=== PATIENT | male | born 1960 | race Caucasian/White ===

== ENCOUNTER → 2017-06-12 | Outpatient (CLI) | payer BC ==
[~2017-06-12] MED LIST: BUDE180I INH; MXZC25 PO; PLMIN90 IN; PRED50TA PO; PRVC/20 PO; SIMV40TA2 PO
== END | disposition home or self-care (01) ==
LOC: C.LABSPEC 12:04
PROVIDERS: ATTEND Family Medicine
DX: J02.9 Acute pharyngitis, unspecified (principal)

== ENCOUNTER 2017-06-26 09:33 | Emergency (ER) | payer BC ==
[~2017-06-26] VITALS: Ht 180.3 cm; Wt 132.0 kg
[~2017-06-26 09:33] MED LIST changes: -BUDE180I INH; -MXZC25 PO; -PRED50TA PO; -PRVC/20 PO
[2017-06-26 09:40] VITALS: Ht 180.3 cm; Wt 132.0 kg
[2017-06-26] MEDS ORDERED: DEXAMETHASONE SOD INJ 4 MG/ML VIAL IV STA (09:56)
[2017-06-26] MEDS ORDERED: RANITIDINE HCL 50 MG/100 ML D5W IV STA (09:56)
[2017-06-26] MEDS ORDERED: DiphenhydrAMINE HCL 50 MG/ML VIAL IV STA (09:56)
[2017-06-26 10:20] VITALS: O2SAT 96
[2017-06-26 10:24] LABS: BASO % 0.1 %; BASO ABS # 0.02 K/uL (0-0.2); COMPLETE YES; EOS % 0.6 %; HEMATOCRIT 42.2 % (42-52); IG% 0.2 %; LYMPH % 11.8 %; LYMPH ABS # 1.91 K/uL (1.2-3.4); MEAN CELL VOLUME 87.4 fL (80-100); MEAN CORPUSCULAR HEMOGLOBIN 30.8 pg (25-34); MEAN CORPUSCULAR HGB CONC 35.3 g/dl (32-36); MEAN PLATELET VOLUME 10.7 fL (7.4-10.4); MONO % 6.1 %; NEUT % 81.2 %; PLATELET COUNT 227 K/uL (130-400); RED BLOOD COUNT 4.83 M/uL (4.7-6.1); WHITE BLOOD COUNT 16.14 K/uL (4.8-10.8)
[2017-06-26] MEDS ORDERED: BUDE180I INH (10:38)
[2017-06-26] MEDS ORDERED: PRVC/20 PO (10:38)
[2017-06-26] MEDS ORDERED: MXZC25 PO (10:38)
[2017-06-26 10:42] LABS: ALT/SGPT 26 U/L (12-78); AST/SGOT 12 U/L (15-37); BLOOD UREA NITROGEN 20 mg/dl (7-18); BUN/CREATININE RATIO 19.7 (10-20); CALCIUM 8.8 mg/dl (8.5-10.1); CARBON DIOXIDE 25 mmol/L (21-32); CHLORIDE 103 mmol/L (98-107); GLUCOSE 108 mg/dl (70-99); POTASSIUM 3.6 mmol/L (3.5-5.1); SODIUM 137 mmol/L (136-145); URIC ACID 6.5 mg/dl (2.6-7.2)
[2017-06-26 10:44] LABS: ANTI-STREP O SCR: 5YRS OR > NEG IU/ml (<200 IU)
[2017-06-26 10:52] LABS: ALKALINE PHOSPHATASE 69 U/L (45-117); C-REACTIVE PROTEIN 4.62 mg/dl (0-0.29)
[2017-06-26 11:19] LABS: LYME DISEASE AB IGG NEG (NEG)
[2017-06-26 11:20] LABS: LYME DISEASE AB IGM NEG (NEG)
[2017-06-26] MEDS ORDERED: PRED50TA PO (13:10)
[2017-06-26 13:22] VITALS: BP 149/97; TEMP 36.6
[2017-06-26 13:23] VITALS: PULSE 75; O2SAT 96
--- NOTE | 2017-06-26 18:28 | EMERGENCY ROOM VISIT NOTE ---
History Report prepared by Wilmer: Hao Calhoun Under the Supervision of: Dr. Tucker Chandler M.D. First contact with patient: 09:43 Chief Complaint: ALLERGIC REACTION Stated Complaint: REACTION TO AMOXICILLIN-RASH/SWELLING FEET/HANDS History of Present Illness The patient is a 57 year old male who presents to the Emergency Room with complaints of a worsening allergic reaction that started a few days ago. He says that 2 weeks ago he had a bad sore throat, so he saw his primary care physician in [place] and had a throat culture done, which was negative, but he was diagnosed with 2 ear infections, and was put on Amoxicillin for 10 days, 500 mg, 3 times per day. The patient says that he was fine for the first 2 days on the medication, but the next 3 days he had diarrhea, which since has resolved. He notes that he then noticed that his feet and hands were swelling up , and he was having blisters on his palm. The patient says that his hands are still swollen. Per the patient's , the patient could hardly walk yesterday. The patient adds that he was having hives everywhere except his back. He says that he was at work last night, and he noticed that his left shoulder was getting increasingly tighter, and he started having hives on the back of his head. He says that the left shoulder tightness and pain has spread to his neck as well. The patient says that he now cannot raise his right arm due to stiffness, soreness, tightness, and weakness. He states that he has pain in both his hands now in addition to his right hip, which started last night. The patient says that both his hands are currently itchy. He notes that he was wheezing a bit for a couple days earlier in the week. Per the patient's , the patient is not eating much. The patient did stop taking the Amoxicillin 3 days ago. He notes no chronic medical conditions. He also notes no recent tick bites. Pt denies LOC, headache, fevers, chills, diaphoresis, visual changes, chest pain, current breathing difficulties, nausea, vomiting, abdominal pain, back pain, melena, hematochezia, urinary symptoms, numbness, lymphadenopathy, or other complaints. Source of History: patient, spouse/significant other Onset: A few days ago Position: other (global - allergic reaction) Quality: other (to Amoxicillin) Timing: worsening Associated Symptoms: + neck pain, + diarrhea (which has since resolved), + weakness (in joints), + rash (hives everywhere) Note: Associated symptoms: Feet and hand swelling, itching. Hives all over. Pain in left shoulder. Cannot raise right arm. Not eating well. Wheezing which has resolved. Review of Systems See HPI for pertinent positives and negatives. A total of ten systems were reviewed and were otherwise negative. Past Medical & Surgical Medical Problems: (1) Ankle fracture, right (2) Fracture of radius, distal, right, closed (3) Hemorrhoid (4) Sleep apnea Family History Cancer Heart disease Social History Smoking Status: Never Smoker Alcohol Use: none Drug Use: none Marital Status: Housing Status: lives with significant other Occupation Status: employed Current/Historical Medications Scheduled Budesonide (Inhalation) (Pulmicort Flexhaler), 2 PUFFS INH BID Pravastatin Sod (Pravastatin Sodium), 1 TAB PO HS Prednisone (Prednisone), 50 MG PO DAILY Triamterene/Hctz (Triamterene/Hctz 37.5-25MG Tab), 1 TAB PO DAILY Allergies Coded Allergies: Amoxicillin (Unverified Allergy, Severe, SWELLING,HIVES, 06/26/17) Physical Exam Vital Signs Date Time Temp Pulse Resp B/P (MAP) Pulse Ox O2 Delivery O2 Flow Rate FiO2 06/26/17 13:23 75 18 96 Room Air 06/26/17 13:22 36.6 76 24 149/97 96 06/26/17 10:33 76 24 06/26/17 10:27 80 06/26/17 10:20 96 Room Air 06/26/17 10:18 95 Room Air 06/26/17 09:50 98 Room Air 06/26/17 09:40 36.6 90 20 149/97 96 Room Air Physical Exam GENERAL: Awake, alert, well-appearing, in no distress HENT: Normocephalic, atraumatic. Oropharynx unremarkable. EYES: Normal conjunctiva. Sclera non-icteric. NECK: Supple. No nuchal rigidity. FROM. No JVD. RESPIRATORY: Clear to auscultation. CARDIAC: Regular rate, normal rhythm. Extremities warm and well perfused. Pulses equal. ABDOMEN: Soft, non-distended. No tenderness to palpation. No rebound or guarding. No masses. RECTAL: Deferred. MUSCULOSKELETAL: Edema to hands. Range of motion in left shoulder is limited secondary to pain. Relief to discomfort with abduction to 180 degrees. Resistance to external rotation elicits shoulder pain. No palpable tenderness. Chest examination reveals no tenderness. The back is symmetrical on inspection without obvious abnormality. There is no CVA tenderness to palpation. LOWER EXTREMITIES: Calves are equal size bilaterally and non-tender. No edema. No discoloration. NEURO: Normal sensorium. No sensory or motor deficits noted. SKIN: Redness in back of head. Medical Decision & Procedures Laboratory Results 06/26/17 10:10 Red Blood Count 4.83, Mean Corpuscular Volume 87.4, Mean Corpuscular Hemoglobin 30.8, Mean Corpuscular Hemoglobin Concent 35.3, Mean Platelet Volume 10.7, Neutrophils (%) (Auto) 81.2, Lymphocytes (%) (Auto) 11.8, Monocytes (%) (Auto) 6.1, Eosinophils (%) (Auto) 0.6, Basophils (%) (Auto) 0.1, Neutrophils # (Auto) 13.09, Lymphocytes # (Auto) 1.91, Monocytes # (Auto) 0.99, Eosinophils # (Auto) 0.09, Basophils # (Auto) 0.02 06/26/17 10:10 Test 06/26/17 10:10 White Blood Count 16.14 K/uL (4.8-10.8) Red Blood Count 4.83 M/uL (4.7-6.1) Hemoglobin 14.9 g/dL (14.0-18.0) Hematocrit 42.2 % (42-52) Mean Corpuscular Volume 87.4 fL (80-100) Mean Corpuscular Hemoglobin 30.8 pg (25-34) Mean Corpuscular Hemoglobin Concent 35.3 g/dl (32-36) Platelet Count 227 K/uL (130-400) Mean Platelet Volume 10.7 fL (7.4-10.4) Neutrophils (%) (Auto) 81.2 % Lymphocytes (%) (Auto) 11.8 % Monocytes (%) (Auto) 6.1 % Eosinophils (%) (Auto) 0.6 % Basophils (%) (Auto) 0.1 % Neutrophils # (Auto) 13.09 K/uL (1.4-6.5) Lymphocytes # (Auto) 1.91 K/uL (1.2-3.4) Monocytes # (Auto) 0.99 K/uL (0.11-0.59) Eosinophils # (Auto) 0.09 K/uL (0-0.5) Basophils # (Auto) 0.02 K/uL (0-0.2) RDW Standard Deviation 43.7 fL (36.4-46.3) RDW Coefficient of Variation 13.7 % (11.5-14.5) Immature Granulocyte % (Auto) 0.2 % Immature Granulocyte # (Auto) 0.04 K/uL (0.00-0.02) Erythrocyte Sedimentation Rate 31 mm/hr (0-14) Anion Gap 9.0 mmol/L (3-11) Est Creatinine Clear Calc Drug Dose 112.9 ml/min Estimated GFR () 96.4 Estimated GFR (Non- 83.2 BUN/Creatinine Ratio 19.7 (10-20) Uric Acid 6.5 mg/dl (2.6-7.2) Calcium Level 8.8 mg/dl (8.5-10.1) Total Bilirubin 0.4 mg/dl (0.2-1) Direct Bilirubin < 0.1 mg/dl (0-0.2) Aspartate Amino Transf (AST/SGOT) 12 U/L (15-37) Alanine Aminotransferase (ALT/SGPT) 26 U/L (12-78) Alkaline Phosphatase 69 U/L (45-117) C-Reactive Protein 4.62 mg/dl (0-0.29) Total Protein 7.9 gm/dl (6.4-8.2) Albumin 3.9 gm/dl (3.4-5.0) Thyroid Stimulating Hormone (TSH) 1.710 uIu/ml (0.300-4.500) Lyme Disease IgG Antibody NEG (NEG) Lyme Disease IgM Antibody NEG (NEG) Anti-Streptolysin O Antibody Screen NEG IU/ml (<200 IU) Laboratory results reviewed by me Medications Administered Medications (Trade) Dose Ordered Sig/Guerline Route Start Time Stop Time Status Last Admin Dose Admin Ranitidine HCl (zANTac IV) 50 mg NOW STAT IV 06/26/17 09:56 06/26/17 10:00 DC 06/26/17 10:12 50 MG Diphenhydramine HCl (Benadryl Inj) 50 mg NOW STAT IV 06/26/17 09:56 06/26/17 10:00 DC 06/26/17 10:13 50 MG Dexamethasone Sodium Phosphate (Decadron Inj) 10 mg NOW STAT IV 06/26/17 09:56 06/26/17 10:00 DC 06/26/17 10:16 10 MG ED Course 0947: The patient was evaluated in room B3B. A complete history and physical exam was performed. 0956: Ordered Decadron Inj 10 mg IV, Benadryl Inj 50 mg IV, Zantac IV 50 mg IV. 1122: I reevaluated the patient and his itching is better, but his shoulder still hurts. 1235: I reevaluated the patient and he is feeling better. Discussed results and discharge instructions: he verbalized understanding and agreement. The patient is ready for discharge. Medical Decision Triage Nursing notes reviewed and agree them. Additional history obtained from his significant other. The patient's history was concerning for possible allergic reaction along with joint pains, swelling, and weakness. Differential diagnosis: Etiologies such as allergic reaction, anaphylaxis, urticaria, Lang-Shelton syndrome, toxic epidermal necrolysis, erythema multiforme, cellulitis, polyarthritis, Lyme disease, serum sickness, as well as others were entertained. Physical examination: As above. ER treatment provided: Continuous cardiac monitoring Benadryl 25 mg IV Zantac 50 mg IV Decadron 10 mg IV On reassessment the patient felt better. His swelling diminished in the hands. Itching was gone. The patient was able to move his shoulder more freely but still had moderate discomfort. Arm sling for comfort Diagnostic interpretation by me: The labs revealed a moderate leukocytosis of 16,000. His CRP and ESR were both significantly elevated. ASO titer was negative. Lyme titer negative. Blood clots unremarkable. Imaging studies: Deferred It appears the patient had an allergic reaction to the amoxicillin. He had significant hives by history. He responded well to the antihistamines and IV steroid. His joint issues were improving. I suspect a reactive arthritis given the issues. He will refrain from any penicillin or amoxicillin use in the future. The patient will be on steroids, prednisone. I had case management set up a follow-up appointment with his primary physician for the first thing next week. He'll be seen Friday. If he worsens in any way or does not improve he will return to the emergency department for reevaluation. By the evaluation outlined above emergent etiologies such as airway compromise, Lang-Shelton syndrome, toxic epidermal necrolysis, erythema multiforme, cellulitis, neurologic compromise, cardiac sources,as well as others were deemed relatively unlikely. The patient and were informed about the findings as listed above. All questions were answered and they were pleased with the treatment. Return instructions were outlined and the patient was discharged in stable condition. Outpatient prescription management: prednisone Referral: The patient was referred back to his primary care physician for follow-up next week for a recheck of the current condition. Medication Reconcilliation Current Medication List: was personally reviewed by me Blood Pressure Screening Patient's blood pressure: Elevated blood pressure Blood pressure disposition: Referred to PCP Impression Primary Impression: Polyarthritis Scribe Attestation The scribe's documentation has been prepared under my direction and personally reviewed by me in its entirety. I confirm that the note above accurately reflects all work, treatment, procedures, and medical decision making performed by me. Departure Information Dispostion Home / Self-Care Prescriptions Prednisone (Prednisone) 50 Mg Tab 50 MG PO DAILY for 4 Days, #4 TAB Prov: Tucker Chandler MD 06/26/17 Referrals Pro,Bret Mariee M.D. (PCP) Patient Instructions My [facility] Additional Instructions Avoid amoxicillin and penicillin antibiotics in the future. Use the sling for comfort. DO NOT drive, drink alcohol, operate machinery, or perform dangerous activities today. You were given medications in the ER that can affect your ability to safely function or operate a vehicle. Prednisone 50mg: Once daily until the prescription is finished. It is best to take this earlier in the day as some patients note occasional difficulty falling asleep when taken in the late evening. Diphenhydramine(Benadryl) 25mg: use 25 to 50 mg every six hours for swelling, itching, or hives. This medication is sedating and will cause drowsiness. Avoid alcohol, operating machinery or dangerous equipment, working on ladders or roofs, DRIVING, or situations where being under the influence may be dangerous. Zantac 75: Take two pills twice a day along with Benadryl as needed for swelling , itching, or hives. Most people know this for its affect on the stomach, but it also acts similar to, but less potent than Benadryl for allergic reactions. Both the Benadryl and the Zantac are available [id number]. Continue current medications. Return to the emergency department for worsening of your rash, swelling of your face, lips, tongue, or throat, difficulty breathing, vomiting, or as needed. Follow-up with your primary care physician, Dr. Adams on July 01 at 9: 30 AM for a recheck of your current condition.
== END 2017-06-26 13:23 | disposition home or self-care (01) ==
LOC: C.EDB 09:36
DX: M15.9 Polyosteoarthritis, unspecified (principal); G47.39 Other sleep apnea; Z87.81 Personal history of (healed) traumatic fracture; Z79.899 Other long term (current) drug therapy; Z88.1 Allergy status to other antibiotic agents; Z80.9 Family history of malignant neoplasm, unspecified; Z82.49 Family history of ischemic heart disease and other diseases of the circulatory system

== ENCOUNTER → 2018-01-12 | Outpatient (CLI) | payer BC, OTHER ==
[~2018-01-12] MED LIST changes: +BUDE180I INH; +MXZC25 PO; -PLMIN90 IN; +PRVC/20 PO; -SIMV40TA2 PO
== END | disposition home or self-care (01) ==
LOC: C.LABPBG 11:21
PROVIDERS: ATTEND Family Medicine
DX: R19.7 Diarrhea, unspecified (principal)

== ENCOUNTER → 2018-01-21 | Outpatient (CLI) | payer OTHER ==
[~2018-01-21] MED LIST changes: +GADAVIST IV PRN
--- NOTE | 2018-01-21 19:23 | DIAGNOSTIC IMAGING REPORT ---
MRI OF THE BRAIN WITHOUT AND WITH IV CONTRAST CLINICAL HISTORY: R51 persistent left-sided headaches MORNING BLURRED VISION COMPARISON STUDY: No previous studies for comparison. TECHNIQUE: MRI of the brain was performed from the vertex to the skull base utilizing various T1 and T2 weighted sequences. Following the IV administration of 12 mL of Gadavist contrast, additional enhanced images were obtained. FINDINGS: Sagittal T1, axial diffusion, proton density and T2 weighted axial, coronal FLAIR, and pre and post axial T1-weighted images were acquired. These were supplemented with post gadolinium coronal T1 weighted images. No intra or extra-axial mass lesions are visualized. Axial diffusion-weighted images reveal no evidence of acute or subacute infarction. There is no evidence of ventricular dilatation. Proton density T2-weighted and FLAIR images reveal scattered foci of increased T2 signal within the white matter, likely on a small vessel basis. Other pathologic entities such as a demyelinating process or vasculitis can appear similar. There are no abnormal flow voids. There is no evidence of pathologic enhancement. IMPRESSION: 1. No acute intracranial findings 2. No evidence of acute or subacute infarction 3. No evidence of intracranial mass 4. Scattered nonspecific foci of increased T2 signal within the white matter, statistically on a small vessel basis. Electronically signed by: Catracho Gross M.D. 01/21/2018 7:21 PM Dictated Date/Time: 01/21/2018 7:18 PM
== END | disposition home or self-care (01) ==
LOC: C.MRI 18:02
PROVIDERS: ATTEND Family Medicine
DX: R51 Headache (principal); R90.82 White matter disease, unspecified